=== PATIENT | female | born 2000 ===

== ENCOUNTER 2023-04-07 06:01 | Outpatient (REF) | payer OTHER, SELFPAY ==
--- NOTE | ~2023-04-07 | US_ITS ---
EXAMINATION: US PELVIS AND TRANSVAGINAL CLINICAL INFORMATION: Nonvisualized IUD string, assess position, onset of last menstrual period 2 days ago. COMPARISON: None available. TECHNIQUE: Ultrasound of the pelvis is performed using both transabdominal and transvaginal transducers along with Doppler. Transvaginal imaging is performed due to inadequate visualization transabdominally. FINDINGS: The uterus measures 8.4 x 3.1 x 4.7 cm. No discrete fibroids are appreciated. IUD in place within the endometrial cavity. Visualization of the endometrium is limited due to shadowing from the IUD. Image segment of endometrium with thickness of 4 mm. No significant free fluid. Right ovary measures 2.6 x 1.4 x 1.5 cm, volume 2.9 mL. Left ovary measures 2.6 x 1.6 x 2.5 cm, volume 5.5 mL. Bilateral ovaries are unremarkable. US/US pelvic and transvaginal IMPRESSION: 1. IUD in place within the endometrial cavity. 2. Unremarkable bilateral ovaries. 3. No discrete fibroids.
== END 2023-04-07 06:02 | disposition home or self-care (01) ==
LOC: HO.UMASIMG 06:01
PROVIDERS: Visit Provider Family Medicine
DX: Z30.431 Encounter for routine checking of intrauterine contraceptive device (principal)
CPT/HCPCS: 76830; 76856